=== PATIENT | male | born 1950 | race Caucasian/White ===

== ENCOUNTER 2016-09-16 16:46 | Emergency (ER) | payer MEDICARE, BC ==
[2016-09-16] MEDS ORDERED: LIDOCAINE HCL 2% 20 ML VIAL ONE (17:10)
--- NOTE | 2016-09-16 18:53 | ER NURSING DOCUMENTATION ---
Nurse's Notes [facility] Name:Ab Pickens Age:65 yrs Sex:Male :1950 Arrival Date:09/16/2016 Time:16:46 Bed1 Private MD:Ghazal Gray Diagnosis:Finger Laceration Presentation: 09/16 16:55 Presenting complaint: Patient states: Pt has a lac through the tip of his right thumb tg and the tip of his 2nd digit. Keeping gauze and pressure on thumb to prevent bleeding. Lacs were from a table saw or possibly just the wood he was cutting that "kicked back.". Transition of care: patient was not received from another setting of care. 16:55 Acuity: DRE 4 tg 16:55 Method Of Arrival: Private Vehicle tg Triage Assessment: 16:59 General: Appears in no apparent distress, Behavior is cooperative. Pain: Complains of tg pain in palmar aspect of distal phalanx of right index finger, palmar aspect of distal phalanx of right thumb and right thumbnail. Neuro: Level of Consciousness is awake, alert. Derm: Skin is pink, warm & dry. Musculoskeletal: Circulation, motion, and sensation intact Range of motion intact in all extremities. Injury Description: Laceration sustained to palmar aspect of distal phalanx of right index finger, palmar aspect of distal phalanx of right thumb, right index fingernail and right thumbnail is jagged, 0.5 to 2.5 cm long, was sustained 30-60 minutes ago. Historical: - Allergies: No known drug Allergies; - Home Meds: 1. None - PMHx: None; - PSHx: trigger finger surgeries; - Tetanus: < 10 years. - Ebola Screening: : Patient negative for fever greater than or equal to 101.5 degrees Fahrenheit, and additional compatible Ebola Virus Disease symptoms. Patient denies exposure to infectious person. Patient denies travel to an Ebola-affected area in the 21 days before illness onset. No symptoms or risks identified at this time. . - Immunization history: Flu Vaccine >1 year. - Social history: Smoking status: Patient states was never smoker of tobacco. Screenin:02 Infectious Disease Risk Unable to Obtain. Abuse screen: Denies threats or abuse. Denies tg injuries from another. Nutritional screening: No deficits noted. Vital Signs: 16:51 BP 160 / 87; Pulse 74; Resp 16; Temp 98.2(O); Pulse Ox 92% on R/A; Weight 83.91 kg (R); arc Height 5 ft. 9 in. (175.26 cm) (R); Pain 6/10; 16:51 Body Mass Index 27.32 (83.91 kg, 175.26 cm) arc ED Course: 16:47 Patient arrived in ED. arc 16:47 Ghazal Gray MD is Private Physician. arc 16:51 Tom Iglesias MD is Attending Physician. 16:57 Triage completed. tg 17:02 Valuables Remains with patient. tg 17:14 Wound care to laceration located on right hand was Irrigation Normal Saline Patient arc tolerated well. 17:37 Ranjith Santo RN is Primary Nurse. tg 17:38 Assist Provider Assist provider with laceration repair on palmar aspect of distal tg phalanx of right thumb and palmar aspect of distal phalanx of right index finger that was 2.5 cm. or less using sutures. Set up tray. Performed by Tom Iglesias MD Dressed with Patient tolerated well. 18:09 Wound care was dressed with bacitracin Vaseline gauze, band aid, Tube Gauze. tg Administered Medications: 16:58 Drug: Lidocaine (2 %) 10 ml; {Note: by Dr. Iglesias.} Route: Infiltration; tg Outcome: 17:56 Discharge ordered by . 18:09 Discharged to home ambulatory. tg 18:09 Condition: stable 18:09 Discharge Assessment: Patient awake, alert and oriented x 3. No cognitive and/or functional deficits noted. Patient verbalized understanding of disposition instructions. 18:09 Instructed on discharge instructions, follow up and referral plans. medication usage, wound care. 18:52 Patient left the ED. tg 09/17 12:43 Discharge F/U Call: Unable to reach: left voicemail: tg Signatures: Ranjith Santo, RN RN Tom Kamara MD MD jm Chew, Amelia, Reg Reg arc
--- NOTE | 2016-09-16 18:53 | ER PHYSICIAN DOCUMENTATION ---
Physician Documentation [facility] Name:Ab Pickens Age:65 yrs Sex:Male :1950 Arrival Date:09/16/2016 Time:16:46 Bed1 Private MD:Ghazal Gray ED, John Disposition: 09/16/16 17:56 Discharged to Home/Self Care. Impression: Finger Laceration. - Condition is Good. - Discharge Instructions: FINGER LACERATION - LACERATION, Hand. - Medical Reconciliation form form. - Follow up: Emergency Department; When: in 10 days; Reason: Staple/Suture removal. - Problem is new. - Symptoms have improved. HPI: 09/16 17:06 This 65 yrs old Male presents to ER via Private Vehicle with complaints of jm Finger Injury. 17:06 The patient or guardian reports injury. The complaints affect the palmar aspect of jm distal phalanx of right thumb. Context: resulted from a penetrating injury, table saw. Onset: The symptom(s)/episode began/occurred just prior to arrival. Modifying factors: the symptoms are aggravated by nothing. Associated signs and symptoms: Pertinent negatives: numbness distally, tingling distally. Pt actually htinks it was the wood the kicked up and lacerated his thumb. . Historical: - Allergies: No known drug Allergies; - Home Meds: 1. None - PMHx: None; - PSHx: trigger finger surgeries; - Tetanus: < 10 years. - Ebola Screening: : Patient negative for fever greater than or equal to 101.5 degrees Fahrenheit, and additional compatible Ebola Virus Disease symptoms. Patient denies exposure to infectious person. Patient denies travel to an Ebola-affected area in the 21 days before illness onset. No symptoms or risks identified at this time. . - Immunization history: Flu Vaccine >1 year. - Social history: Smoking status: Patient states was never smoker of tobacco. ROS: 17:08 Constitutional: Negative for fever, malaise. 17:08 MS/extremity: Positive for laceration. 17:08 Skin: Positive for laceration(s). Exam: 17:08 Constitutional: The patient appears alert, awake. 17:08 Musculoskeletal/extremity: Extremities: grossly normal except: noted in the palmar aspect of distal phalanx of right thumb: laceration, pain, noted in the palmar aspect of distal phalanx of right index finger: abrasion, ROM: intact in all extremities, Sensation intact. 17:08 Skin: injury, abrasion(s), very small abrasion noted, of the palmar aspect of distal phalanx of right index finger. 17:08 Neuro: Motor: is normal, Sensation: is normal. Vital Signs: 16:51 BP 160 / 87; Pulse 74; Resp 16; Temp 98.2(O); Pulse Ox 92% on R/A; Weight 83.91 kg (R); arc Height 5 ft. 9 in. (175.26 cm) (R); Pain 6/10; 16:51 Body Mass Index 27.32 (83.91 kg, 175.26 cm) arc Laceration: 18:23 Wound Repair of 2cm ( 0.8in ) subcutaneous laceration to palmar aspect of distal jm phalanx of right thumb. Distal neuro/vascular/tendon intact. Anesthesia: Wound infiltrated with 20 mls of 2% lidocaine. Wound prep: Wound irrigation with saline. Skin closed with 3 5-0 Ethilon using Interrupted sutures. Dressed with tube gauze. Patient tolerated well. MDM: 16:49 Patient medically screened. 18:25 Differential diagnosis: laceration. Data reviewed: vital signs, nurses notes, and as a result, I will discharge patient. Counseling: I had a detailed discussion with the patient and/or guardian regarding: the historical points, exam findings, and any diagnostic results supporting the discharge/admit diagnosis, the need for outpatient follow up, with the patient's primary care provider. ED course: The sewing of this wound was very difficult b/c of the thumb being so mangled. I pieced together what I could, but I feel the majority of the wound will need to heal by secondary intention. . 07 16:57 Order name: Wound Care; Complete Time: 16:59 Dispensed Medications: 16:58 Drug: Lidocaine (2 %) 10 ml; {Note: by Dr. Iglesias.} Route: Infiltration; Signatures: Ranjith Santo RN RN tg Tom Iglesias MD MD jm
== END 2016-09-16 18:53 | disposition home or self-care (01) ==
LOC: ER 16:46
DX: S61.011A Laceration without foreign body of right thumb without damage to nail, initial encounter (principal); S60.410A Abrasion of right index finger, initial encounter; W31.2XXA Contact with powered woodworking and forming machines, initial encounter; Y93.H3 Activity, building and construction
CPT/HCPCS: 12041; 99284

== ENCOUNTER 2016-09-26 10:32 | Emergency (ER) | payer MEDICARE, BC ==
[2016-09-26] MEDS ORDERED: LIDOCAINE HCL 5% OINT 35 APP/35.44 GM TUBE TOPICAL ONE (12:16)
--- NOTE | 2016-09-26 13:21 | ER NURSING DOCUMENTATION ---
Nurse's Notes [facility] Name:Ab Pickens Age:65 yrs Sex:Male :1950 Arrival Date:09/26/2016 Time:10:32 Bed1 Private MD: Diagnosis:Suture Removal;Suture Check - no infection Presentation: 09/26 10:37 Acuity: DRE 5 rh 10:46 Presenting complaint: Patient states: Pt is here for suture removal, however the site rh is reddened and inflamed. Transition of care: Home. 10:46 Method Of Arrival: Private Vehicle rh Triage Assessment: 10:43 General: Appears in no apparent distress, Behavior is cooperative. Pain: Complains of rh pain in palmar aspect of distal phalanx of right thumb and palmar aspect of proximal phalanx of right thumb. Historical: - Allergies: No known drug Allergies; - Home Meds: 1. None - PMHx: NONE; Finger Laceration (September 16, 2016); - PSHx: trigger finger surgeries; - Tetanus: < 10 years. - Ebola Screening: : Patient negative for fever greater than or equal to 101.5 degrees Fahrenheit, and additional compatible Ebola Virus Disease symptoms. - Immunization history: Unable to Obtain. - Social history: Smoking status: unknown if patient ever smoked tobacco. Screenin:44 Infectious Disease Risk None. Abuse screen: Denies threats or abuse. Denies injuries rh from another. Nutritional screening: No deficits noted. Assessment: 10:50 See Triage Assessment done by same RN. rh Vital Signs: 10:49 BP 118 / 86; Pulse 70; Resp 16; Temp 98.2(O); Pulse Ox 94% on R/A; Pain 2/10; rh ED Course: 10:33 Patient arrived in ED. ds 10:37 Melissa Arthur is Primary Nurse. rh 10:37 Triage completed. rh 10:44 Valuables Remains with patient Patient has correct armband on for positive rh identification. Call light in reach. 10:44 Recheck of Sutures on palmar aspect of proximal phalanx of right thumb and palmar rh aspect of distal phalanx of right thumb is reddened, inflamed. 11:26 Fausto Rivera MD is Attending Physician. cd 13:00 Assist Provider suture removal. Wound care Sutures removed by Dr. Rivera after the tg application of topical lidocaine. Wound wsa then cleansed, dressed with bacitracin and xeroform and tube gauze. Administered Medications: 12:05 Drug: Lidocaine Ointment (5%) 0.5 inches; {Note: tight thumb pad.} Route: Topical; tg Site: affected area; Outcome: 13:07 Discharge ordered by . garret 13:20 Patient left the ED. lpr 13:20 Discharged to home ambulatory, with significant other. tg 13:20 Condition: stable 13:20 Discharge Assessment: Patient awake, alert and oriented x 3. No cognitive and/or functional deficits noted. Patient verbalized understanding of disposition instructions. 13:20 Instructed on discharge instructions, follow up and referral plans. wound care. 13:20 No charge visit due to suture removal. Signatures: Ranjith Santo RN RN tg Srot, Sue, Reg Reg Fausto Chen MD MD cd Roberts, Leslie, RN RN lpr Hofsess, Rachel
--- NOTE | 2016-09-26 13:21 | ER PHYSICIAN DOCUMENTATION ---
Physician Documentation [facility] Name:Ab Pickens Age:65 yrs Sex:Male :1950 Arrival Date:09/26/2016 Time:10:32 Bed1 Private MD: Fausto Carballo Disposition: 09/26/16 13:07 Discharged to Home/Self Care. Impression: Suture Removal, Suture Check - no infection. - Condition is Good. - Discharge Instructions: SUTURE REMOVAL, No Complication. - Medical Reconciliation form form. - Follow up: Private Physician; When: As needed; Reason: Recheck today's complaints, Continuance of care. - Problem is an ongoing problem. - Symptoms have improved. HPI: 09/26 10:40 This 65 yrs old Male presents to ER via Private Vehicle with complaints of cd Suture Removal - RT THUMB. 10:40 The patient has sutures on the palmar aspect of distal phalanx of right thumb. Previous cd treatment: the care was rendered at [facility] Treatment type: The patient's original treatment included irrigation, sutures. Sutures/hina progress: The patient has no c/o's. The wound is well-healing with no redness, swelling, discharge, or dehiscence reported. The patient had a table saw injury to their right thumb pad. The three sutures were imbedded and required my removal. It will need to heal by secondary intention. I applied 5% Lidocaine Ointment to the area to numb it.. Historical: - Allergies: No known drug Allergies; - Home Meds: 1. None - PMHx: NONE; Finger Laceration (September 16, 2016); - PSHx: trigger finger surgeries; - Tetanus: < 10 years. - Ebola Screening: : Patient negative for fever greater than or equal to 101.5 degrees Fahrenheit, and additional compatible Ebola Virus Disease symptoms. - Immunization history: Unable to Obtain. - Social history: Smoking status: unknown if patient ever smoked tobacco. ROS: 10:45 Constitutional: Negative for chills, fever. cd 10:45 Skin: Negative for cellulitis, swelling. 10:45 All other systems are negative. Exam: 10:45 Constitutional: The patient appears in no acute distress, alert, awake. cd 10:45 Skin: Appearance: normal except for affected area, Wound recheck: Suture laceration closure: the wound is healing well, no drainage, no erythema. Vital Signs: 10:49 BP 118 / 86; Pulse 70; Resp 16; Temp 98.2(O); Pulse Ox 94% on R/A; Pain 2/10; rh Procedures: 10:45 Suture/Staple removal: Removed 3 sutures, from palmar aspect of distal phalanx of right cd thumb, site appears well healed, dressed with Bacitracin and Tube Guaze. MDM: 11:26 Patient medically screened. cd 13:00 Data reviewed: vital signs, nurses notes, and as a result, I will discharge patient. cd Counseling: I had a detailed discussion with the patient and/or guardian regarding: the historical points, exam findings, and any diagnostic results supporting the discharge/admit diagnosis, the need for outpatient follow up, for a recheck, with the patient's primary care provider, to return to the emergency department if symptoms worsen or persist or if there are any questions or concerns that arise at home. Dispensed Medications: 12:05 Drug: Lidocaine Ointment (5%) 0.5 inches; {Note: tight thumb pad.} Route: Topical; tg Site: affected area; Signatures: Ranjith Santo RN RN tg Daley, Chris, MD MD cd Roberts, Leslie, RN RN [facility] Melissa Arthur
== END 2016-09-26 13:21 | disposition home or self-care (01) ==
LOC: ER 10:32
DX: Z48.02 Encounter for removal of sutures (principal); S61.011D Laceration without foreign body of right thumb without damage to nail, subsequent encounter; Z48.89 Encounter for other specified surgical aftercare